=== PATIENT | male | born 1985 | race Caucasian/White ===

== ENCOUNTER 2017-03-30 21:40 | Emergency (ER) | payer SELFPAY ==
[2017-03-30 23:11] LABS: microscopic required? NO
[2017-03-30 23:21] LABS: BASOPHIL % 0.4 % (0-2); PLATELET COUNT 303 x10^3mcL (130-400); RED CELL DISTRIBUTION WIDTH 13.3 % (11.5-14.5)
[2017-03-30 23:31] LABS: CALCIUM 8.5 mg/dL (8.5-10.1); CARBON DIOXIDE 31.1 mmol/L (21-32); CHLORIDE SERUM 102 mmol/L (98-107); CREATININE SERUM 0.7 mg/dL (0.7-1.3); GFR1 > 60 mL/min; GLUCOSE SERUM 119 mg/dL (74-106); POTASSIUM SERUM 3.8 mmol/L (3.5-5.1); SODIUM SERUM 139 mmol/L (136-145)
[2017-03-30 23:38] LABS: ALBUMIN 3.4 g/dL (3.4-5.0); ALKALINE PHOSPHATASE 97 U/L (46-116); ALT/SGPT 112 U/L (16-63); AMYLASE 60 U/L (25-115); AST/SGOT 58 U/L (15-37); BILIRUBIN TOTAL 0.22 mg/dL (0.20-1.00); HDL CHOLESTEROL 45 mg/dL (40-60); LIPASE 402 IU/L (73-393); MAGNESIUM 2.4 mg/dL (1.8-2.4)
[2017-03-30 23:43] LABS: CHOLESTEROL 250 mg/dL (<200)
[2017-03-30 23:45] LABS: urine erythrocyte NEGATIVE (NEGATIVE)
[2017-03-30 23:53] LABS: AMPHETAMINE QUAL UR NONE DETECTED (NEG <=1000)
[2017-03-31 01:39] VITALS: BP 135/104
== END 2017-03-31 01:39 | disposition home or self-care (01) ==
LOC: ED 21:40
PROVIDERS: Emergency Medicine
DX: K85.90 Acute pancreatitis without necrosis or infection, unspecified (principal); F10.20 Alcohol dependence, uncomplicated; E78.00 Pure hypercholesterolemia, unspecified; R74.0 Nonspecific elevation of levels of transaminase and lactic acid dehydrogenase [LDH]; I10 Essential (primary) hypertension; E66.9 Obesity, unspecified
CPT/HCPCS: 82962; 83880; G0480; J1885; J3411; J3475; J3490; J7030; Q0092

== ENCOUNTER 2017-07-16 12:10 | Emergency (ER) | payer SELFPAY ==
[~2017-07-16] VITALS: Ht 172.7 cm; Wt 103.0 kg
[2017-07-16 12:22] VITALS: Ht 172.7 cm; Wt 103.0 kg
[2017-07-16 13:55] VITALS: BP 146/84
== END 2017-07-16 13:55 | disposition home or self-care (01) ==
LOC: ED 12:10
DX: G47.00 Insomnia, unspecified (principal); R07.89 Other chest pain

== ENCOUNTER 2018-01-29 14:51 | Emergency (ER) | payer SELFPAY ==
[~2018-01-29] VITALS: Ht 172.7 cm; Wt 110.7 kg
[2018-01-29 15:04] VITALS: Ht 172.7 cm; Wt 110.7 kg
[2018-01-29 16:14] VITALS: BP 144/99
== END 2018-01-29 16:14 | disposition home or self-care (01) ==
LOC: ED 14:51
DX: R51 Headache (principal); I10 Essential (primary) hypertension

== ENCOUNTER 2018-05-11 18:59 | Emergency (ER) | payer SELFPAY ==
[~2018-05-11] VITALS: Ht 172.7 cm; Wt 119.3 kg
[2018-05-11 19:36] VITALS: Ht 172.7 cm; Wt 119.3 kg
[2018-05-11 20:43] VITALS: BP 148/104
== END 2018-05-11 20:43 | disposition home or self-care (01) ==
LOC: ED 18:59
DX: S39.012A Strain of muscle, fascia and tendon of lower back, initial encounter (principal); I10 Essential (primary) hypertension; W18.39XA Other fall on same level, initial encounter; Y93.89 Activity, other specified; Y92.89 Other specified places as the place of occurrence of the external cause; Y99.8 Other external cause status
CPT/HCPCS: J1885

== ENCOUNTER 2018-08-14 12:47 | Emergency (ER) | payer SELFPAY ==
[~2018-08-14] VITALS: Ht 172.7 cm; Wt 117.9 kg
[2018-08-14 12:59] VITALS: Ht 172.7 cm; Wt 117.9 kg
[2018-08-14 15:12] VITALS: BP 149/86
== END 2018-08-14 15:37 | disposition home or self-care (01) ==
LOC: ED 12:47
DX: S39.012A Strain of muscle, fascia and tendon of lower back, initial encounter (principal); I10 Essential (primary) hypertension; X58.XXXA Exposure to other specified factors, initial encounter; Y93.89 Activity, other specified; Y92.89 Other specified places as the place of occurrence of the external cause; Y99.8 Other external cause status
CPT/HCPCS: J1885

== ENCOUNTER 2019-05-23 12:36 | Emergency (ER) | payer SELFPAY ==
[~2019-05-23] VITALS: Ht 172.7 cm; Wt 122.5 kg
[2019-05-23 13:03] VITALS: Ht 172.7 cm; Wt 122.5 kg
[2019-05-23 16:00] VITALS: BP 155/100
== END 2019-05-23 16:00 | disposition home or self-care (01) ==
LOC: ED 12:36
DX: J20.9 Acute bronchitis, unspecified (principal); I10 Essential (primary) hypertension

== ENCOUNTER 2019-05-30 16:23 | Emergency (ER) | payer SELFPAY ==
[~2019-05-30] VITALS: Ht 172.7 cm; Wt 122.9 kg
[2019-05-30 16:44] VITALS: Ht 172.7 cm; Wt 122.9 kg
[2019-05-30 20:54] VITALS: BP 135/80
== END 2019-05-30 20:54 | disposition home or self-care (01) ==
LOC: ED 16:23
DX: R07.81 Pleurodynia (principal); R05 Cough; I10 Essential (primary) hypertension
CPT/HCPCS: J1885

== ENCOUNTER 2020-02-25 08:12 | Emergency (ER) | payer SELFPAY ==
[~2020-02-25] VITALS: Ht 172.7 cm; Wt 127.0 kg
[2020-02-25 08:21] VITALS: Ht 172.7 cm; Wt 127.0 kg
[2020-02-25 11:04] VITALS: BP 132/8
== END 2020-02-25 11:04 | disposition home or self-care (01) ==
LOC: ED 08:12
DX: L02.11 Cutaneous abscess of neck (principal); I10 Essential (primary) hypertension
CPT/HCPCS: 82962; 90715; J2001